=== PATIENT | female | born 1990 | race Caucasian/White ===

== ENCOUNTER 2018-07-24 16:14 | Outpatient (CLI) | payer OTHER ==
--- NOTE | 2018-07-24 18:03 | Non Stress Test Report ---
Non Stress Test Datetime Report Generated by CPN: 07/24/2018 18:03 DEMOGRAPHIC EGA NST: 39.2 INDICATION Indication for Study: Ordered by Provider MONITORING Monitor Explained: Monitor Explained; Test Explained; Patient Verbalized Understanding Time on Monitor: 07/24/2018 16:34 Time off Monitor: 07/24/2018 17:31 NST Duration: 57 NST INTERVENTIONS NST Interventions: PO Hydration Physician Notified NST: Dr. Younger BABY A: [id number] BABY A Movement : Present Contraction Frequency : irritability FHR Baseline : 130 Accelerations : 15X15 Decelerations : None Variability : Moderate 6-25bpm NST Review: Meets Criteria for Reactive NST NST Review and Verified By : GENI Cage Results: Reactive NST COMMENTS NST Comments: Dr Younger on unit reviewing entire FHT strip NST REPORT Report Trigger: Send Report
== END 2018-07-24 17:47 | disposition home or self-care (01) ==
LOC: LC 16:14
PROVIDERS: ATTEND Obstetrics & Gynecology
PROC: 4A1HXCZ Monitoring of Products of Conception, Cardiac Rate, External Approach (ICD-10-PCS; principal; 2018-07-24)
DX: O47.1 False labor at or after 37 completed weeks of gestation (principal); Z3A.39 39 weeks gestation of pregnancy
CPT/HCPCS: 84112

== ENCOUNTER 2018-07-27 10:20 | Outpatient (CLI) | payer OTHER | END 2018-07-27 11:10 | disposition home or self-care (01) | LOC: LC 10:20 | PROVIDERS: ATTEND Obstetrics & Gynecology | PROC: 4A1HXCZ Monitoring of Products of Conception, Cardiac Rate, External Approach (ICD-10-PCS; principal; 2018-07-27) | DX: Z34.93 Encounter for supervision of normal pregnancy, unspecified, third trimester (principal); Z3A.39 39 weeks gestation of pregnancy | CPT/HCPCS: 59025 ==

== ENCOUNTER 2018-07-31 18:02 | Inpatient (IN) | payer OTHER ==
[~2018-07-31 18:02] MED LIST: ROCURONIUM BROMIDE INJ 50 MG/5 ML VIAL IV ONE; SUCCINYLCHOLINE CHLORIDE INJ 200 MG/10 ML VIAL ONE
[2018-07-31] MEDS ORDERED: RINGERS SOLUTION,LACTATED 1,000 ML IV ONE (18:21)
[2018-07-31] MEDS ORDERED: ACETAMINOPHEN 325 MG TABLET PO PRN ×2 (18:21→23:51)
[2018-07-31] MEDS ORDERED: DINOPROSTONE 10 MG VAGINAL INSERT.SR PV ONE (18:21)
[2018-07-31] MEDS ORDERED: ZOLPIDEM TARTRATE 5 MG TABLET PO PRN (18:21)
[2018-07-31] MEDS ORDERED: RINGERS SOLUTION,LACTATED 1,000 ML IV PRN (18:21)
[2018-07-31] MEDS ORDERED: MAG HYDROX/AL HYDROX/SIMETH SUSP 30 ML UDCUP PO PRN (18:21)
[2018-07-31 18:59] LABS: ABSOLUTE LYMPHOCYTES (AUTO) 2.3 10^3/uL (0.5-4.7); ABSOLUTE MONOCYTES (AUTO) 0.3 10^3/uL (0.1-1.4); ABSOLUTE NEUT (AUTO) 9.1 10^3/uL (1.7-8.2); BASOPHILS % (AUTO) 0.1 % (0-2); EOSINOPHILS % (AUTO) 0.4 % (0-6); HEMATOCRIT 34.8 % (36.0-47.0); HEMOGLOBIN 11.4 g/dL (12.0-15.5); LYMPHOCYTES % (AUTO) 19.2 % (13-45); MEAN CORPUSCULAR HEMOGLOBIN 28.3 pg (27.0-33.4); MEAN CORPUSCULAR HGB CONC 32.8 g/dL (32.0-36.0); MEAN CORPUSCULAR VOLUME 86 fl (80-97); PLATELET COUNT 182 10^3/uL (150-450); RED BLOOD COUNT 4.04 10^6/uL (3.72-5.28); RED CELL DISTRIBUTION WIDTH 14.6 % (11.5-14.0); SEGMENTED NEUTROPHILS % (AUTO) 77.3 % (42-78); TOTAL CELLS COUNTED % (AUTO) 100 %; WHITE BLOOD COUNT 11.8 10^3/uL (4.0-10.5)
[2018-07-31 19:20] LABS: URINE AMPHETAMINES SCREEN NEGATIVE; URINE BARBITURATES SCREEN NEGATIVE; URINE BENZODIAZEPINES SCREEN NEGATIVE; URINE COCAINE SCREEN NEGATIVE; URINE MARIJUANA (THC) SCREEN NEGATIVE; URINE METHADONE SCREEN NEGATIVE; URINE PHENCYCLIDINE SCREEN NEGATIVE
[2018-07-31] MEDS ORDERED: OXYTOCIN 10 UNIT/ML VIAL ONE ×2 (19:35→23:10)
[2018-07-31] MEDS ORDERED: MISOPROSTOL 0.2 MG TABLET ONE (19:35)
[2018-07-31] MEDS ORDERED: LIDOCAINE 1% INJ-PF (10 MG/ML) 30 ML SDV ONE (19:35)
[2018-07-31] MEDS ORDERED: OXYTOCIN/NORMAL SALINE 0 UNIT/0 ML RTUINJ ONE (19:36)
[2018-07-31] MEDS ORDERED: DINOPROSTONE 10 MG VAGINAL INSERT.SR ONE (19:41)
[2018-07-31] MEDS ORDERED: CEFAZOLIN 2 GM/D5W RTU 2 GM/50 ML RTUPB IV ONE (23:08)
[2018-07-31] MEDS ORDERED: CITRIC ACID/SODIUM CITRATE ORAL SOLN 15 ML UDCUP ONE (23:08)
[2018-07-31] MEDS ORDERED: EPHEDRINE SULFATE INJ 50 MG/1 ML AMPULE ONE (23:10)
[2018-07-31] MEDS ORDERED: MIDAZOLAM 2 MG/2 ML INJ ONE (23:10)
[2018-07-31] MEDS ORDERED: OXYTOCIN/NORMAL SALINE 20 UNIT/1,000 ML RTUINJ ONE (23:10)
[2018-07-31] MEDS ORDERED: FENTANYL CITRATE INJ/PF 100 MCG/2 ML AMPUL ONE ×2 (23:10→23:34)
[2018-07-31] MEDS ORDERED: ONDANSETRON HCL INJ/PF 4 MG/2 ML SDV ONE (23:11)
--- NOTE | 2018-07-31 23:19 | Admission Physical ---
Datetime Report Generated by CPN: 07/31/2018 23:19 CURRENT ADMISSION Chief Complaint: Other Indication for Induction: Polyhydramnios Admit Impression : Term, Intrauterine Admit Plan: Initiate Labor Induction Protocol ALLERGIES Medication Allergies: No Medication Allergies: pseudoephedrine HCl (07/24/2018); guaifenesin (07/24/2018) Latex: No Latex Allergies Food Allergies: none Environmental Allergies: pollen OBSTETRICAL HISTORY EDC: 07/29/2018 00:00 : 1 Para: 0 Term: 0 : 0 SAB: 0 IAB: 0 Ectopic: 0 Livin Cesareans: 0 VBACs: 0 Multiple Births: 0 Gestational Diabetes: No Rh Sensitization: No Incompetent Cervix: No DARYA: No Infertility: No ART Treatment: No Uterine Anomaly: No IUGR: No Hx Previous C/S: No Macrosomia: Unknown Hx Loss/Stillborn: No PIH: No Hx : No Placenta Previa/Abruption: No Depression/PP Depression: No PTL/PROM: No Post Hemorrhage: No Current Procedures: Ultrasound Obstetrical History Comments: G1- current , Poly, LGA? SEE RECORDS Alcohol: No Marijuana : No Cocaine: No Other Illicit Drugs: No Cigarettes: Never Smoker. 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 Heart Disease: No Hosp/Surgery: Yes Autoimmune Disorder: No Anesthetic Complications: No Kidney Disease: No Abnormal Pap Smear: No Neuro/Epilepsy: No Psychiatric Disorders: No Other Medical Diseases: Yes Hepatitis/Liver Disease: No Significant Family History: No Varicosities/Phlebitis: No Trauma/Violence : No Thyroid Dysfunction: Yes Medical History Comments: migraines, hypothyroidism, arthoscopic right ankle 2003, OATS procedure right knee and ankle 2005, Tonsilectomy 2005, obesity INFECTIOUS HISTORY Gonorrhea: No Genital Herpes: No Chlamydia: No Tuberculosis: No Syphilis: No Hepatitis: No HIV/AIDS Exposure: No Rash or Viral Illness: No HPV: No PHYSICAL EXAM General: Normal HEENT: Normal Neurologic: Normal Thyroid: Normal Heart: Normal Lungs: Normal Breast: Deferred Back: Normal Abdomen: Normal Genitourinary Exam: Normal Extremities: Normal DTRs: Normal Pelvic Type: Adequate FETUS A EGA: 40.2 PLANS FOR LABOR AND DELIVERY Labor and Delivery: Other, Specify Pain Management: Epidural Feeding Preference: Breast Benefit of Breast Feed Discussed: Yes Circumcision: Yes INFORMED CONSENT Signature: with User ID: [email or web address]
[2018-07-31] MEDS ORDERED: FENTANYL CITRATE INJ/PF 100 MCG/2 ML AMPUL IV PRN ×2 (23:37)
[2018-07-31] MEDS ORDERED: MEPERIDINE HCL/PF INJ 25 MG/1 ML DISP.SYRIN IV PRN (23:37)
[2018-07-31] MEDS ORDERED: DIPHENHYDRAMINE HCL 50 MG/ML VIAL IV PRN (23:37)
[2018-07-31] MEDS ORDERED: MORPHINE SULFATE 10 MG/ML INJ IV PRN (23:37)
[2018-07-31] MEDS ORDERED: PROMETHAZINE HCL INJ 25 MG/1 ML VIAL IV PRN ×2 (23:37→23:51)
[2018-07-31] MEDS ORDERED: OXYTOCIN/NORMAL SALINE 20 UNIT/1,000 ML RTUINJ IV PRN (23:51)
[2018-07-31] MEDS ORDERED: SIMETHICONE 80 MG TAB.CHEW PO PRN (23:51)
[2018-07-31] MEDS ORDERED: ACETAMINOPHEN 1,000 MG/100 ML RTUPB IV PRN (23:51)
[2018-07-31] MEDS ORDERED: MEASLES,MUMPS&RUBELLA VACC/PF 0.5 ML VIAL SUBCUT PRN (23:51)
[2018-07-31] MEDS ORDERED: DIPH/PERTUSS(ACELL)/TETANUS VAC/PF 0.5 ML SYR (>=10YO) IM PRN (23:51)
[2018-07-31] MEDS ORDERED: MORPHINE SULFATE 10 MG/ML INJ IM PRN (23:51)
[2018-08-01] MEDS ORDERED: PROPOFOL INJ 200 MG/20 ML VIAL IV ONE (00:01)
[2018-08-01] MEDS ORDERED: FENTANYL CITRATE INJ/PF 100 MCG/2 ML AMPUL ONE (00:11)
[2018-08-01] MEDS: FENTANYL CITRATE INJ/PF 100 MCG/2 ML AMPUL IV PRN ×2 (00:15→00:33)
[2018-08-01] MEDS ORDERED: MEPERIDINE HCL/PF INJ 25 MG/1 ML DISP.SYRIN ONE (00:23)
[2018-08-01] MEDS ORDERED: MORPHINE SULFATE 10 MG/ML INJ ONE (00:35)
[2018-08-01] MEDS ORDERED: ACETAMINOPHEN 1,000 MG/100 ML RTUPB IV ONE (01:00)
[2018-08-01] MEDS: OXYCODONE-ACETAMINOPHEN 5-325 MG TABLET PO PRN ×4 (03:05→22:00)
--- NOTE | 2018-08-01 03:44 | OPERATIVE REPORT E ---
Operative Report NAME: ELIOT BERRY : 1990 AGE: 28Y DATE OF SURGERY: 07/31/2018 ROOM: 222 PREOPERATIVE DIAGNOSES: 1. IUP AT TERM WITH POLYHYDRAMNIOS. 2. PROLAPSED CORD. 3. DISTRESS. POSTOPERATIVE DIAGNOSES: 1. IUP AT TERM WITH POLYHYDRAMNIOS. 2. PROLAPSED CORD. 3. DISTRESS. OPERATION: Primary low transverse , delivery of a viable male, 9 pounds 4 ounces. Apgars of 8 and 9. SURGEON: Magdalene AGUIRRE M.D. ESTIMATED BLOOD LOSS: Less than 600 mL. ANESTHESIA: General. TISSUE REMOVED OR ALTERED: Placenta. PROCEDURE: The patient was placed in a supine position, rolled on her right side, prepped and draped in sterile fashion. A Pfannenstiel incision was made. Incision extended through the subcutaneous tissue with sharp dissection. Fascia sharply divided. Rectus muscle bluntly and sharply divided. Parietal peritoneum was entered with sharp dissection. The uterus was nicked in midline and extended bilaterally. The was then delivered through the uterine abdominal incision via Kiwi extraction. Nose and mouth were suctioned with bulb syringe. The cord was clamped and the infant was passed from the table. The placenta was manually extracted. The uterus closed in 2 layers; the first, a running stitch of 0 Vicryl and the second Lembert suture imbricating the first layer. Two areas of bleeding were noted, controlled with [id number] sutures of 0 Vicryl. Hemostasis was noted. The fascia closed with 0 Vicryl. The skin was closed with subcutaneous absorbable damon. Her urine remained clear throughout the procedure. She was taken to the recovery room in good condition. The infant went to nursery in good condition. DICTATING PHYSICIAN: Magdalene AGUIRRE M.D. [id number] PHY#: [id number] ID: [id number] JOB#: [id number] ACCT: [id number] cc:Magdalene AGUIRRE M.D. >
[2018-08-01] MEDS: KETOROLAC TROMETHAMINE INJ/PF 30 MG/1 ML SDV IV SCH ×3 (06:19→21:02)
[2018-08-01 06:54] LABS: HEMATOCRIT 31.8 % (36.0-47.0); HEMOGLOBIN 10.5 g/dL (12.0-15.5); MEAN CORPUSCULAR HEMOGLOBIN 28.4 pg (27.0-33.4); MEAN CORPUSCULAR HGB CONC 33.1 g/dL (32.0-36.0); MEAN CORPUSCULAR VOLUME 86 fl (80-97); PLATELET COUNT 146 10^3/uL (150-450); RED BLOOD COUNT 3.71 10^6/uL (3.72-5.28); RED CELL DISTRIBUTION WIDTH 14.6 % (11.5-14.0); WHITE BLOOD COUNT 14.2 10^3/uL (4.0-10.5)
[2018-08-01] MEDS: DOCUSATE SODIUM 100 MG CAPSULE PO SCH ×2 (09:38→17:13)
[2018-08-01] MEDS: PRENATAL VITAMIN W DHA CAPSULE PO SCH (09:38)
--- NOTE | 2018-08-01 09:45 | PDOC PROGRESS REPORT ---
Subjective-OB Progress Note for:: 08/01/18 - POD #1, s/p Primary , due to a cord prolapse. Hx of Polyhydramnios. Doing well, no complaints. Hx Hypothyroidism, took her medication that she brought from home this morning. Pt plans to elliott alfonso. A negative. Rubella Immune Physical Exam (OB) Vital Signs: Temp Pulse Resp BP Pulse Ox 99.4 F 69 16 124/59 L 98 08/01/18 07:50 08/01/18 07:50 08/01/18 07:50 08/01/18 07:50 08/01/18 07:50 Intake & Output 07/31/18 08/01/18 08/02/18 06:59 06:59 06:59 Output Total 1700 Balance -1700 Weight 131.7 kg - General General Appearance: Appears well, Alert In distress: None - PIH/Pre-Eclampsia Clonus: Negative Headache: Absent Epigastric Pain: No Visual Changes: No - Dressing Removed: No Incision: Dressing Closure Type: pressuredr - Lochia Lochia Amount: Scant < 10 ml Lochia Color: Rubra/Red - Abdomen Description: Tender, Soft Hernia Present: No Fundal Description: Firm, Midline Fundal Height: u/u - u/2 - Respiratory Respiratory Status: No respiratory distress Breath sounds: Clear - Cardiovascular Rhythm: Regular Heart Sounds: Normal auscultation - Abdominal Inspection: Normal Distension: No distension Tenderness: Nontender Abdominal Notes: +bowel sounds - Genitourinary Genitourinary Note: voiding - Extremities Upper extremity: Normal inspection Lower extremities: Normal inspection - Neurological Cognition: Normal Orientation: AAOx4 - Psychological Associated symptoms: Normal affect, Normal mood - Skin Skin Temperature: Warm Skin Moisture: Dry Objective-Diagnostic Laboratory: 08/01/18 06:35 07/31/18 07/31/18 08/01/18 18:45 18:45 06:35 WBC 11.8 H 14.2 H RBC 4.04 3.71 L Hgb 11.4 L 10.5 L Hct 34.8 L 31.8 L MCV 86 86 MCH 28.3 28.4 MCHC 32.8 33.1 RDW 14.6 H 14.6 H Plt Count 182 146 L Seg Neutrophils % 77.3 Lymphocytes % 19.2 Monocytes % 3.0 Eosinophils % 0.4 Basophils % 0.1 Absolute Neutrophils 9.1 H Absolute Lymphocytes 2.3 Absolute Monocytes 0.3 Absolute Eosinophils 0.0 Absolute Basophils 0.0 Blood Type A NEGATIVE Antibody Screen POSITIVE Assessment and Plan(PN) - Assessment and Plan (1) delivery delivered Is this a current diagnosis for this admission?: Yes (2) Polyhydramnios affecting Is this a current diagnosis for this admission?: Yes (3) Umbilical cord prolapse in labor and delivery Qualifiers: Fetus number: single or unspecified fetus Qualified Code(s): O69.0XX0 - Labor and delivery complicated by prolapse of cord, not applicable or unspecified Is this a current diagnosis for this admission?: Yes - Time Spent with Patient Time with patient: Less than 15 minutes Medications reviewed and adjusted accordingly: Yes - Disposition Anticipated Discharge: Home Within: within 48 hours
[2018-08-01] MEDS ORDERED: (PENDING PHARMACY ID) (Ranitidine Hcl [Ranitidine Hcl] 150 MG) PO SCH (10:00)
[2018-08-01] MEDS: LEVOTHYROXINE SODIUM 0.1 MG TABLET PO SCH (14:01)
[2018-08-01] MEDS: FAMOTIDINE 20 MG TABLET PO SCH ×2 (14:01→17:13)
[2018-08-01] MEDS: IBUPROFEN 800 MG TABLET PO SCH (23:43)
[2018-08-02] MEDS: LEVOTHYROXINE SODIUM 0.1 MG TABLET PO SCH (05:55)
[2018-08-02] MEDS: IBUPROFEN 800 MG TABLET PO SCH ×4 (05:55→23:56)
[2018-08-02] MEDS: FAMOTIDINE 20 MG TABLET PO SCH ×2 (09:00→18:24)
[2018-08-02] MEDS: DOCUSATE SODIUM 100 MG CAPSULE PO SCH ×2 (09:00→18:24)
[2018-08-02] MEDS: PRENATAL VITAMIN W DHA CAPSULE PO SCH (09:00)
[2018-08-02] MEDS: KETOROLAC TROMETHAMINE INJ/PF 30 MG/1 ML SDV IV SCH ×2 (12:43→18:28)
--- NOTE | 2018-08-02 16:42 | PDOC DISCHARGE SUMMARY ---
Final Diagnosis Discharge Date: 08/02/18 - Final Diagnosis (1) Acute blood loss anemia Is this a current diagnosis for this admission?: Yes (2) delivery delivered Is this a current diagnosis for this admission?: Yes (3) Polyhydramnios affecting Is this a current diagnosis for this admission?: Yes (4) Umbilical cord prolapse in labor and delivery Is this a current diagnosis for this admission?: Yes Discharge Data - Discharge Medication Prescriptions: Oxycodone HCl/Acetaminophen [Percocet 5-325 mg Tablet] 2 tab PO Q4HP PRN #20 tablet PRN Reason: For Pain Scale 1-3 Ibuprofen [Motrin 800 mg Tablet] 800 mg PO Q8HP PRN #30 tablet PRN Reason: For Pain Scale 1-3 Docusate Sodium [Colace 100 mg Capsule] 100 mg PO BID #60 capsule Ferrous Sulfate [Feosol 325 mg Tablet] 325 mg PO BID #60 tablet Home Medications: Levothyroxine Sodium [Levoxyl] 100 mcg PO DAILY 07/24/18 Vits96/Iron Fum/Folic [ Tablet] 1 each PO DAILY 07/24/18 Cetirizine HCl [Zyrtec 5 mg Tablet] 10 mg PO QPM 07/31/18 Ranitidine HCl 150 mg PO BID 08/01/18 Docusate Sodium [Colace 100 mg Capsule] 100 mg PO BID #60 capsule 08/02/18 Ferrous Sulfate [Feosol 325 mg Tablet] 325 mg PO BID #60 tablet 08/02/18 Ibuprofen [Motrin 800 mg Tablet] 800 mg PO Q8HP PRN #30 tablet 08/02/18 Oxycodone HCl/Acetaminophen [Percocet 5-325 mg Tablet] 2 tab PO Q4HP PRN #20 tablet 08/02/18 Reason(s) for Admission: Induction of Labor Procedures: NST, Ultrasound Intrapartum Procedure(s): : Low Cervical, Transverse - Diagnosis Test Laboratory: Temp Pulse Resp BP Pulse Ox 98.2 F 56 L 16 128/58 H 98 08/02/18 12:58 08/02/18 12:58 08/02/18 12:58 08/02/18 12:58 08/02/18 12:58 07/31/18 07/31/18 08/01/18 18:11 18:45 06:35 RBC 4.04 3.71 L Hgb 11.4 L 10.5 L Hct 34.8 L 31.8 L Urine Opiates Screen NEGATIVE - Discharge information/Instructions Discharge Activity: Activity As Tolerated, Balance Activity w/Rest, No Lifting Over 10 Pounds, Pelvic Rest, No tub bath, Walk Frequently Discharge Diet: As Tolerated, Regular Disposition: HOME, SELF-CARE Follow up with: [facility] in: 5, Days - incision check
[2018-08-03] MEDS: IBUPROFEN 800 MG TABLET PO SCH (05:06)
[2018-08-03] MEDS: KETOROLAC TROMETHAMINE INJ/PF 30 MG/1 ML SDV IV SCH ×2 (05:08→07:32)
[2018-08-03] MEDS: LEVOTHYROXINE SODIUM 0.1 MG TABLET PO SCH (05:19)
[2018-08-03 08:30] VITALS: BP 137/56
[2018-08-03] MEDS: PRENATAL VITAMIN W DHA CAPSULE PO SCH (10:01)
[2018-08-03] MEDS: FAMOTIDINE 20 MG TABLET PO SCH (10:01)
[2018-08-03] MEDS: DOCUSATE SODIUM 100 MG CAPSULE PO SCH (10:01)
--- NOTE | 2018-08-03 10:26 | PDOC DISCHARGE SUMMARY ---
Final Diagnosis Discharge Date: 08/03/18 - Final Diagnosis (1) delivery delivered Is this a current diagnosis for this admission?: Yes (2) Polyhydramnios affecting Is this a current diagnosis for this admission?: Yes (3) hemorrhage Is this a current diagnosis for this admission?: Yes (4) Umbilical cord prolapse in labor and delivery Is this a current diagnosis for this admission?: Yes Discharge Data - Discharge Medication Prescriptions: Docusate Sodium [Colace 100 mg Capsule] 100 mg PO BID #60 capsule Ibuprofen [Motrin 800 mg Tablet] 800 mg PO Q8HP PRN #30 tablet PRN Reason: For Pain Scale 1-3 Home Medications: Vits96/Iron Fum/Folic [ Tablet] 1 each PO DAILY 07/24/18 Docusate Sodium [Colace 100 mg Capsule] 100 mg PO BID #60 capsule 08/02/18 Ibuprofen [Motrin 800 mg Tablet] 800 mg PO Q8HP PRN #30 tablet 08/02/18 Levothyroxine Sodium [Synthroid 0.1 mg Tablet] 0.1 mg PO Q6AM tablet 08/03/18 Reason(s) for Admission: Induction of Labor Procedures: NST Intrapartum Procedure(s): : Low Cervical, Transverse - Diagnosis Test Laboratory: Temp Pulse Resp BP Pulse Ox 97.8 F 60 17 137/56 H 100 08/03/18 08:22 08/03/18 08:22 08/03/18 08:22 08/03/18 08:22 08/03/18 08:22 07/31/18 07/31/18 08/01/18 18:11 18:45 06:35 RBC 4.04 3.71 L Hgb 11.4 L 10.5 L Hct 34.8 L 31.8 L Urine Opiates Screen NEGATIVE - Discharge information/Instructions Discharge Activity: Activity As Tolerated, Balance Activity w/Rest, No Lifting Over 10 Pounds, No Lifting/Push/Pulling, Pelvic Rest, No tub bath, Walk Frequently Discharge Diet: Regular Disposition: HOME, SELF-CARE Follow up with: [facility] in: 1, Weeks
== END 2018-08-03 12:20 | disposition home or self-care (01) | DRG 787 ==
LOC: LR 18:02 → 2S 08-01 01:52
PROVIDERS: ADMIT Obstetrics & Gynecology Gynecology; ATTEND Obstetrics & Gynecology Gynecology
PROC: 10D00Z1 Extraction of Products of Conception, Low, Open Approach (ICD-10-PCS; principal; 2018-07-31)
PROC: 4A1HXCZ Monitoring of Products of Conception, Cardiac Rate, External Approach (ICD-10-PCS; 2018-07-31)
PROC: 3E0234Z Introduction of Serum, Toxoid and Vaccine into Muscle, Percutaneous Approach (ICD-10-PCS; 2018-08-01)
DX: O40.3XX0 Polyhydramnios, third trimester, not applicable or unspecified (principal); O72.1 Other immediate postpartum hemorrhage; D62 Acute posthemorrhagic anemia; O69.0XX0 Labor and delivery complicated by prolapse of cord, not applicable or unspecified; O90.81 Anemia of the puerperium; O76 Abnormality in fetal heart rate and rhythm complicating labor and delivery; E66.9 Obesity, unspecified; O26.893 Other specified pregnancy related conditions, third trimester; Z67.11 Type A blood, Rh negative; Z79.899 Other long term (current) drug therapy; Z88.8 Allergy status to other drugs, medicaments and biological substances; Z3A.40 40 weeks gestation of pregnancy; Z37.0 Single live birth
CPT/HCPCS: 1961; 36415; 80307; 85025; 85027; 85461; 86592; 86850; 86870; 86900; 86901; 94760; 94799; J0131; J0330; J0690; J1885; J2175; J2250; J2270; J2405; J2590; J2704; J2790; J3010; J3490